=== PATIENT | male | born 1965 | race Caucasian/White ===

== ENCOUNTER 2019-07-22 08:35 | Outpatient (CLI) | payer OTHER | END 2019-07-22 08:36 | disposition critical access hospital (66) | LOC: EMS 08:35 | PROVIDERS: ATTEND Surgery | DX: R10.30 Lower abdominal pain, unspecified (principal) | CPT/HCPCS: A0425; A0429 ==

== ENCOUNTER 2019-07-22 08:59 | Emergency (ER) | payer OTHER ==
--- NOTE | 2019-07-22 09:12 | ED Physician Documentation ---
PD HPI ABD PAIN - Stated complaint Stated Complaint: ABD PX - Chief complaint Chief Complaint: Abd Pain - History obtained from History obtained from: Patient - History of Present Illness Timing - onset: Today (about 5 am, abrupt onset of left lower abd pain.) Timing - duration: Hours Timing - details: Abrupt onset, Still present Quality: Cramping, Sharp, Pain Location: LLQ Radiation: No: Left flank, Right flank Improved by: No: Laying still, BM (had small BM after onset of pain.) Worsened by: No: Moving, Breathing Associated symptoms: Nausea, Constipation (minimal BM the past 3 days.). No: Fever, Vomiting, Diarrhea Similar symptoms before: Diagnosis (had had similar pain in past due to diverticulitis.) Review of Systems Constitutional: denies: Fever, Chills Nose: denies: Rhinorrhea / runny nose, Congestion Throat: denies: Sore throat Respiratory: denies: Cough GI: reports: Nausea, Constipation. denies: Abdominal Swelling, Vomiting, Diarrhea : denies: Dysuria, Frequency Skin: denies: Rash PD PAST MEDICAL HISTORY - Past Medical History Cardiovascular: None Respiratory: Sleep apnea, CPAP use Endocrine/Autoimmune: None GI: None : None HEENT: None Psych: Depression, Anxiety Musculoskeletal: None Derm: None - Past Surgical History Past Surgical History: Yes General: Colonoscopy Ortho: Hip replacement - Present Medications Home Medications: Ambulatory Orders Medication Instructions Recorded Confirmed Tamsulosin [Flomax] 0.4 mg PO DAILY 03/17/14 10/13/15 Citalopram [CeleXA] 20 mg PO DAILY 07/26/14 10/13/15 traZODone [Desyrel] 100 mg PO HS 11/03/14 10/13/15 Naproxen 500 mg PO BID #20 tablet 07/22/19 Ondansetron Odt [Zofran] 4 mg TL Q6H PRN #15 tablet 07/22/19 Oxycodone HCl/Acetaminophen 1 each PO Q4H PRN #15 tablet 07/22/19 [Percocet 7.5-325 mg Tablet] - Allergies Allergies/Adverse Reactions: Allergies Allergy/AdvReac Type Severity Reaction Status Date / Time No Known Drug Allergies Allergy Verified 07/22/19 09:09 - Social History Does the pt smoke?: Yes Smoking Status: Current every day smoker Does the pt drink ETOH?: Yes Does the pt have substance abuse?: No - Immunizations Immunizations are current?: No - POLST Patient has POLST: No PD ED PE NORMAL - Vitals Vital signs reviewed: Yes - General General: Alert and oriented X 3, Well developed/nourished, Other (appears in considerable pain) - HEENT HEENT: Pharynx benign - Neck Neck: Supple, no meningeal sign, No adenopathy - Cardiac Cardiac: RRR, No murmur - Respiratory Respiratory: Clear bilaterally - Abdomen Abdomen: Normal bowel sounds, Soft, Non distended, No organomegaly, Other (tender LLQ without percussion nor rebound tenderness. ) - Back Back: No CVA TTP - Derm Derm: Normal color, Warm and dry - Extremities Extremities: No edema, No calf tenderness / cord Results - Vitals Vitals: Vital Signs - 24 hr 07/22/19 07/22/19 07/22/19 08:59 09:09 10:44 Temperature 36.8 C 36.8 C Heart Rate 88 85 70 Respiratory 20 16 16 Rate Blood Pressure 180/69 H 175/65 H 157/70 H O2 Saturation 98 98 96 07/22/19 07/22/19 12:00 13:25 Temperature 36.9 C Heart Rate 66 89 Respiratory 18 18 Rate Blood Pressure 186/62 H 111/55 L O2 Saturation 98 99 Oxygen O2 Source Room air - Labs Labs: Laboratory Tests 07/22/19 07/22/19 07/22/19 09:06 09:06 09:15 WBC 17.7 H RBC 4.38 L Hgb 13.2 L Hct 38.7 L MCV 88.4 MCH 30.1 MCHC 34.1 RDW 13.2 Plt Count 253 MPV 10.3 Neut # (Auto) 15.0 H Lymph # (Auto) 1.6 [place] # (Auto) 0.9 Eos # (Auto) 0.1 Baso # (Auto) 0.1 Absolute Nucleated RBC 0.00 Nucleated RBC % 0.0 Sodium 136 Potassium 4.2 Chloride 99 L Carbon Dioxide 25 Anion Gap 12.0 BUN 24 H Creatinine 1.2 Estimated GFR (MDRD) 63 L Glucose 155 H Calcium 10.0 Total Bilirubin 0.9 AST 37 ALT 44 Alkaline Phosphatase 93 Total Protein 8.8 H Albumin 4.8 Globulin 4.0 Albumin/Globulin Ratio 1.2 Lipase 67 H Urine Color YELLOW Urine Clarity CLEAR Urine pH 7.5 Ur Specific [place] 1.025 Urine Protein 30 H Urine Glucose (UA) NEGATIVE Urine Ketones 15 H Urine Occult Blood TRACE-INTA Urine Nitrite NEGATIVE Urine Bilirubin NEGATIVE Urine Urobilinogen 0.2 (NORMAL) Ur Leukocyte Esterase NEGATIVE Urine RBC 0-5 Urine WBC 0-3 Ur Squamous Epith Cells NONE SEEN Amorphous Sediment Few Urine Bacteria Few Ur Microscopic Review INDICATED Urine Culture Comments NOT INDICATED - Rads (name of study) abd CT Radiology: Prelim report reviewed (distal left ureteral stone with mild hydro, 3 mm. Diverticula without diverticulitis. ), See rad report PD MEDICAL DECISION MAKING - ED course Complexity details: re-evaluated patient (substantially improved after IV meds. ), considered differential, d/w patient Departure - Departure Disposition: 01 Home, Self Care Clinical Impression: Left sided abdominal pain, Ureterolithiasis Condition: Stable Record reviewed to determine appropriate education?: Yes Instructions: ED Stone Renal W Colic Follow-Up: JULIO ROACH DO [Primary Care Provider] - Prescriptions: Naproxen 500 mg PO BID #20 tablet Ondansetron Odt [Zofran] 4 mg TL Q6H PRN #15 tablet PRN Reason: Nausea / Vomiting Oxycodone HCl/Acetaminophen [Percocet 7.5-325 mg Tablet] 1 each PO Q4H PRN #15 tablet PRN Reason: Pain Comments: You have a small kidney stone 2 to 3 mm on the left side almost to the bladder. It is in the distal ureter in [place] is small enough that it should pass in the next few days at most. Recheck if not improved and resolved over the next few days. Meanwhile stay well-hydrated and continue usual medicines. Add naproxen anti- inflammatory twice daily for the next several days to a week. Add ondansetron if needed for nausea. To that add Tylenol 4 times a day or Percocet if needed for worse pain. Recheck if not improved over the next few days. Discharge Date/Time: 07/22/19 13:26
[2019-07-22 09:15] LABS: BASOPHILS # (AUTO) 0.1 10^3/uL (0.0-0.1); BASOPHILS % (AUTO) 0.5 %; EOSINOPHILS # (AUTO) 0.1 10^3/uL (0.0-0.7); EOSINOPHILS % (AUTO) 0.6 %; HGB - HEMOGLOBIN 13.2 g/dL (14.0-18.0); LYMPHOCYTES # (AUTO) 1.6 10^3/uL (1.5-3.5); LYMPHOCYTES % (AUTO) 8.9 %; MEAN CORPUSCULAR HEMOGLOBIN 30.1 pg (27.0-31.0); MEAN CORPUSCULAR HGB CONC 34.1 g/dL (32.0-36.0); MEAN CORPUSCULAR VOLUME 88.4 fL (80.0-94.0); MEAN PLATELET VOLUME 10.3 fL (7.4-11.4); MONOCYTES # (AUTO) 0.9 10^3/uL (0.0-1.0); MONOCYTES % (AUTO) 4.8 %; NEUTROPHILS % (AUTO) 84.4 %; PLT - PLATELET COUNT 253 10^3/uL (130-450); RED BLOOD COUNT 4.38 10^6/uL (4.70-6.10); RED CELL DISTRIBUTION WIDTH 13.2 % (12.0-15.0); WHITE BLOOD COUNT 17.7 x10^3/uL (4.8-10.8)
[2019-07-22 09:22] LABS: BILIRUBIN,URINE NEGATIVE (NEGATIVE); GLUCOSE, URINE (UA) NEGATIVE (NEGATIVE); KETONES,URINE (UA) 15 mg/dL (NEGATIVE); LEUKOCYTE ESTERASE, URINE NEGATIVE (NEGATIVE); NITRITE,URINE NEGATIVE (NEGATIVE); OCCULT BLOOD,URINE TRACE-INTA (NEGATIVE); PH,URINE 7.5 PH (5.0-7.5); PROTEIN,URINE 30 mg/dL (NEGATIVE); UROBILINOGEN,URINE 0.2 (NORMAL) E.U./dL (NORMAL)
[2019-07-22 09:23] LABS: CLARITY,URINE CLEAR (CLEAR)
[2019-07-22 09:26] LABS: ALBUMIN 4.8 g/dL (3.2-5.5); ALBUMIN/GLOBULIN RATIO 1.2 (1.0-2.2); BILIRUBIN,TOTAL 0.9 mg/dL (0.2-1.0); CREATININE 1.2 mg/dL (0.6-1.2); TOTAL PROTEIN 8.8 g/dL (6.7-8.2)
[2019-07-22 09:35] LABS: BACTERIA,URINE Few /HPF (None Seen); RBC,URINE 0-5 /HPF (0-5); SQUAMOUS EPITHELIAL CELL,UR NONE SEEN (<= Few)
[2019-07-22 09:36] LABS: AMORPHOUS SEDIMENT,UR Few /LPF
[2019-07-22] MEDS ORDERED: KETOROLAC 15 MG/ML VIAL IVP STA (09:46)
[2019-07-22] MEDS ORDERED: SODIUM CHLORIDE 0.9% 1,000 ML IV ONE (09:46)
[2019-07-22] MEDS ORDERED: ONDANSETRON 4 MG/2 ML VIAL IVP STA (09:46)
[2019-07-22] MEDS ORDERED: HYDROmorphone 1 MG/ML CARPUJECT IVP STA ×2 (09:46→12:26)
[2019-07-22] MEDS ORDERED: GLYCERIN ADULT SUPP PR STA (09:47)
[2019-07-22] MEDS ORDERED: DOCUSATE SODIUM 100 MG CAPSULE PO STA (09:47)
[2019-07-22] MEDS ORDERED: IOVERSOL 320 100 ML VIAL IVP ONE ×2 (09:52→12:29)
--- NOTE | 2019-07-22 12:18 | CT Report ---
Reason: left lower abd pain and elevated WBC Procedure Date: 07/22/2019 Accession Number: [id number] / [id number] Procedure: CT - Abdomen/Pelvis W CPT Code: Final Report FULL RESULT: EXAM: CT ABDOMEN AND PELVIS EXAM DATE: 07/22/2019 10:23 AM. CLINICAL HISTORY: Left lower abd pain and elevated WBC. COMPARISONS: ABDOMEN/PELVIS W/O 10/02/2013 1:06 PM. TECHNIQUE: Routine helical CT imaging was performed through the abdomen and pelvis. IV contrast: 100 mL OPTIRAY 320. Enteric contrast: No. Reconstructions: Coronal and sagittal. In accordance with CT protocol optimization, one or more of the following dose reduction techniques were utilized for this exam: automated exposure control, adjustment of mA and/or KV based on patient size, or use of iterative reconstructive technique. FINDINGS: Lung Bases: Unremarkable. Liver: Normal. No masses. Gallbladder/Bile Ducts: Unremarkable. Spleen: Normal. Pancreas: Normal. Adrenal Glands: Normal. Kidneys: 9 mm lower pole left renal calculus. Slightly delayed left nephrogram enhancement. Asymmetric moderate left perinephric fat stranding. Mild left hydronephrosis and hydroureter. 3 small distal left ureteral calculi which are difficult to visualize because of beam hardening artifact but measuring up to about 2 mm each. Right kidney unremarkable. Peritoneal Cavity/Bowel: Stomach mildly distended with fluid. Unopacified small bowel loops nondilated. Normal appendix. Moderate descending and proximal sigmoid colon diverticulosis. No focal pericolonic fat stranding. No lymphadenopathy, ascites, or pneumoperitoneum. Pelvic Organs: Small volume bladder. No bladder calculus is identified. Prostate gland and seminal vesicles are normal in size. Vasculature: Moderate aortoiliac atherosclerotic calcification. Bones: Left total hip arthroplasty causing beam hardening artifact. Avascular necrosis of the superior aspect of the right femoral head with mild articular surface collapse and moderate secondary osteoarthritis. Mild diffuse idiopathic skeletal hyperostosis in the lower thoracic greater than lumbar spine. 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 Other: Body wall is unremarkable. IMPRESSION: 1. Moderately obstructing distal left ureteral calculi, likely 3, measuring up to about 2 mm each, suboptimally visualized because of metal artifact from the left hip. 2. 10 mm lower pole left renal calculus. 3. Left total hip arthroplasty. 4. 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 5. 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 6. Moderate descending and proximal sigmoid colon diverticulosis without evidence of acute diverticulitis. RADIA
[2019-07-22] MEDS ORDERED: LIDOCAINE-MPF 2% 8 ML in SODIUM CHLORIDE 0.9% 50 ML IV STA (12:26)
[2019-07-22 13:26] VITALS: BP 111/55
== END 2019-07-22 13:26 | disposition home or self-care (01) ==
LOC: EDUNIT# → ED 08:59
DX: N20.1 Calculus of ureter (principal); F17.200 Nicotine dependence, unspecified, uncomplicated
CPT/HCPCS: 36415; 74177; 80053; 81001; 83690; 85025; 96361; 96374; 96375; 96376; 99284; A9270; J1170; J7040; Q9967; 81003; 87086

== ENCOUNTER 2020-11-29 20:06 | Emergency (ER) | payer OTHER ==
[2020-11-29] MEDS ORDERED: diphenhydrAMINE INJ 50 MG/ML VIAL IVP STA (20:27)
[2020-11-29] MEDS ORDERED: DROPERIDOL 5 MG/2 ML VIAL IVP STA (20:27)
[2020-11-29 20:35] LABS: BASOPHILS # (AUTO) 0.1 10^3/uL (0.0-0.1); BASOPHILS % (AUTO) 0.4 %; EOSINOPHILS # (AUTO) 0.1 10^3/uL (0.0-0.7); EOSINOPHILS % (AUTO) 0.9 %; HCT - HEMATOCRIT 35.8 % (42.0-52.0); LYMPHOCYTES # (AUTO) 1.9 10^3/uL (1.5-3.5); LYMPHOCYTES % (AUTO) 13.6 %; MEAN CORPUSCULAR HEMOGLOBIN 30.7 pg (27.0-31.0); MEAN CORPUSCULAR HGB CONC 33.5 g/dL (32.0-36.0); MEAN CORPUSCULAR VOLUME 91.6 fL (80.0-94.0); MEAN PLATELET VOLUME 9.4 fL (7.4-11.4); MONOCYTES # (AUTO) 0.8 10^3/uL (0.0-1.0); MONOCYTES % (AUTO) 5.6 %; NEUTROPHILS # (AUTO) 11.1 10^3/uL (1.5-6.6); PLT - PLATELET COUNT 250 10^3/uL (130-450); RED BLOOD COUNT 3.91 10^6/uL (4.70-6.10); RED CELL DISTRIBUTION WIDTH 12.8 % (12.0-15.0)
[2020-11-29 20:45] LABS: BILIRUBIN,URINE NEGATIVE (NEGATIVE); GLUCOSE, URINE (UA) NEGATIVE (NEGATIVE); KETONES,URINE (UA) NEGATIVE (NEGATIVE); LEUKOCYTE ESTERASE, URINE TRACE (NEGATIVE); NITRITE,URINE NEGATIVE (NEGATIVE); OCCULT BLOOD,URINE LARGE (NEGATIVE); PH,URINE 5.5 PH (5.0-7.5); PROTEIN,URINE 100 mg/dL (NEGATIVE); UROBILINOGEN,URINE 0.2 (NORMAL) E.U./dL (NORMAL)
[2020-11-29 20:47] LABS: CLARITY,URINE HAZY (CLEAR)
--- NOTE | 2020-11-29 20:47 | ED Physician Documentation ---
PD HPI ABD PAIN - Stated complaint Stated Complaint: STOMACH PX N/V - Chief complaint Chief Complaint: Abd Pain - History obtained from History obtained from: Patient - History of Present Illness Timing - onset: How many hours ago (1) Timing - duration: Hours (1) Timing - details: Abrupt onset Pain level max: 8 Pain level now: 1 Quality: Cramping, Aching, Pain Location: All over / everywhere Associated symptoms: Nausea, Vomiting. No: Fever, Hematemesis, Diarrhea, Constipation Recently seen: Not recently seen - Additional information Additional information: Patient is a 55-year-old male who complains of generalized abdominal pain. Started about an hour ago, comes and goes. Nothing makes it better or worse. Has had nausea and vomiting associated with this. Does have a history of ureteral stones, but states that this feels different. He last ate about 7 hours prior to symptom onset. He does use marijuana daily and gross is on marijuana. No fevers. No chills. No urinary symptoms. No abdominal surgeries in the past Review of Systems Constitutional: denies: Fever, Chills GI: reports: Nausea, Vomiting. denies: Diarrhea, Hematemesis, Bloody / black stool : denies: Dysuria, Frequency, Hesitancy Skin: denies: Rash Musculoskeletal: denies: Neck pain, Back pain Neurologic: denies: Headache PD PAST MEDICAL HISTORY - Past Medical History Past Medical History: Yes Cardiovascular: None Respiratory: Sleep apnea, CPAP use Endocrine/Autoimmune: None GI: GERD, Diverticulitis : None HEENT: None Psych: Depression, Anxiety Musculoskeletal: None Derm: None - Past Surgical History Past Surgical History: Yes General: Colonoscopy Ortho: Hip replacement - Present Medications Home Medications: Ambulatory Orders Medication Instructions Recorded Confirmed Tamsulosin [Flomax] 0.4 mg PO DAILY 03/17/14 10/13/15 Citalopram [CeleXA] 20 mg PO DAILY 07/26/14 10/13/15 traZODone [Desyrel] 100 mg PO HS 11/03/14 10/13/15 Naproxen 500 mg PO BID #20 tablet 07/22/19 Ondansetron Odt [Zofran] 4 mg TL Q6H PRN #15 tablet 07/22/19 Oxycodone HCl/Acetaminophen 1 each PO Q4H PRN #15 tablet 07/22/19 [Percocet 7.5-325 mg Tablet] Ondansetron Odt [Zofran] 4 mg TL Q6H PRN #10 tablet 11/29/20 - Allergies Allergies/Adverse Reactions: Allergies Allergy/AdvReac Type Severity Reaction Status Date / Time No Known Drug Allergies Allergy Verified 07/22/19 09:09 - Social History Does the pt smoke?: Yes Smoking Status: Current every day smoker Does the pt drink ETOH?: Yes Does the pt have substance abuse?: No - Immunizations Immunizations are current?: No - POLST Patient has POLST: No PD ED PE NORMAL - Vitals Vital signs reviewed: Yes - General General: Alert and oriented X 3, No acute distress, Well developed/nourished - HEENT HEENT: PERRL, Moist mucous membranes - Neck Neck: Supple, no meningeal sign - Cardiac Cardiac: RRR, Strong equal pulses - Respiratory Respiratory: No respiratory distress, Clear bilaterally - Abdomen Abdomen: Soft, Non tender, Non distended - Back Back: No CVA TTP, No spinal TTP - Derm Derm: Warm and dry - Extremities Extremities: No edema - Neuro Neuro: Alert and oriented X 3 - Psych Psych: Normal mood, Normal affect Results - Vitals Vitals: Vital Signs - 24 hr 11/29/20 11/29/20 20:09 20:12 Temperature 36.5 C 36.5 C Heart Rate 76 76 Respiratory 16 16 Rate Blood Pressure 159/71 H 159/71 H O2 Saturation 98 98 Oxygen O2 Source Room air - Labs Labs: Laboratory Tests 11/29/20 11/29/20 11/29/20 20:31 20:31 20:40 WBC 14.0 H RBC 3.91 L Hgb 12.0 L Hct 35.8 L MCV 91.6 MCH 30.7 MCHC 33.5 RDW 12.8 Plt Count 250 MPV 9.4 Neut # (Auto) 11.1 H Lymph # (Auto) 1.9 [place] # (Auto) 0.8 Eos # (Auto) 0.1 Baso # (Auto) 0.1 Absolute Nucleated RBC 0.00 Nucleated RBC % 0.0 Sodium 137 Potassium 4.5 Chloride 100 L Carbon Dioxide 26 Anion Gap 11.0 BUN 19 Creatinine 0.9 Estimated GFR (MDRD) 87 L Glucose 116 H Calcium 9.8 Total Bilirubin 0.7 AST 20 ALT 24 Alkaline Phosphatase 91 Total Protein 8.3 H Albumin 4.8 Globulin 3.5 Albumin/Globulin Ratio 1.4 Lipase 32 Urine Color DARK YELLOW Urine Clarity HAZY Urine pH 5.5 Ur Specific [place] 1.025 Urine Protein 100 H Urine Glucose (UA) NEGATIVE Urine Ketones NEGATIVE Urine Occult Blood LARGE H Urine Nitrite NEGATIVE Urine Bilirubin NEGATIVE Urine Urobilinogen 0.2 (NORMAL) Ur Leukocyte Esterase TRACE H Urine RBC TNTC H Urine WBC 4-5 Ur Squamous Epith Cells RARE Squamous Amorphous Sediment Rare Urine Bacteria Rare Ur Microscopic Review INDICATED Urine Culture Comments INDICATED - Rads (name of study) CT abdomen and pelvis Radiology: Final report received, EMP read contemporaneously, See rad report PD MEDICAL DECISION MAKING - ED course Complexity details: reviewed results, re-evaluated patient, considered differential, d/w patient ED course: Patient given droperidol and Benadryl. Symptoms resolved. No further abdominal pain, nausea or vomiting. Does have a nonobstructing left renal pelvic calculus, 18 mm. No other acute process. Minimally elevated white blood cell count, likely from the vomiting and pain. Possible cannabinoid induced hyperemesis? We will have him follow-up with his doctor for further care. Abdomen remains soft, nontender nondistended on serial exam. Possible viral infection versus food poisoning as well. Patient counseled regarding signs and symptoms for which I believe and urgent re-evaluation would be necessary. Patient with good understanding of and agreement to plan and is comfortable going home at this time This document was made in part using voice recognition software. While efforts are made to proofread this document, sound alike and grammatical errors may occur. IMPRESSION: 1. Nonobstructing left renal pelvic calculus. 2. Normal appendix. 3. No acute process. Departure - Departure Disposition: 01 Home, Self Care Clinical Impression: Renal stone Vomiting Qualifiers: Vomiting type: unspecified Vomiting Intractability: non-intractable Nausea presence: with nausea Qualified Code(s): R11.2 - Nausea with vomiting, unspecified Abdominal pain Qualifiers: Abdominal location: generalized Qualified Code(s): R10.84 - Generalized abdominal pain Condition: Good Instructions: ED Nausea Vomiting, ED Abdominal Pain Unkn Cause Follow-Up: JULIO ROACH DO [Primary Care Provider] - Floyd Phillips MD [Physician No Access] - Within 1 week Prescriptions: Ondansetron Odt [Zofran] 4 mg TL Q6H PRN #10 tablet PRN Reason: Nausea / Vomiting Comments: It is important that you follow-up with urology, [facility] are the closest urologist to you. You do have a large 18 mm stone in the left renal pelvis, this will likely need to be removed. A prescription was sent to [facility] for nausea medication. Please return if you worsen.
[2020-11-29 20:49] LABS: ALBUMIN 4.8 g/dL (3.2-5.5); ALBUMIN/GLOBULIN RATIO 1.4 (1.0-2.2); BILIRUBIN,TOTAL 0.7 mg/dL (0.2-1.0); CALCIUM 9.8 mg/dL (8.5-10.3); CREATININE 0.9 mg/dL (0.6-1.2); POTASSIUM 4.5 mmol/L (3.5-5.0); TOTAL PROTEIN 8.3 g/dL (6.7-8.2)
[2020-11-29 20:54] LABS: AMORPHOUS SEDIMENT,UR Rare /LPF; BACTERIA,URINE Rare /HPF (None Seen); RBC,URINE TNTC /HPF (0-5); SQUAMOUS EPITHELIAL CELL,UR RARE Squamous (<= Few)
[2020-11-29] MEDS ORDERED: IOPAMIDOL-300 100 ML VIAL IVP ONE (21:21)
--- NOTE | 2020-11-29 21:34 | CT Report ---
PROCEDURE: Abdomen/Pelvis W INDICATIONS: Abdominal pain, acute, nonlocalized CONTRAST: IV CONTRAST: Isovue 300 ml: 100 PO CONTRAST: *NO PO CONTRAST TECHNIQUE: After the administration of IV contrast, 5 mm thick sections acquired from the diaphragms to the symp hysis. 5 mm thick coronal and sagittal reformats were acquired. For radiation dose reduction, the f ollowing was used: automated exposure control, adjustment of mA and/or kV according to patient size. COMPARISON: CT dated 07/22/2019 FINDINGS: Image quality: Excellent. ABDOMEN: Lung bases: Lung bases are clear. Heart size is normal. Solid organs: Liver and spleen are normal in size and enhancement. Gallbladder is within normal villa its Biliary system is non dilated. Pancreas enhances normally. No adrenal nodules. Kidneys demons trate normal size and enhancement, without hydronephrosis. Nonobstructing left renal calculus within the pelvis measuring 18 mm, increased in size. Peritoneum and bowel: Bowel loops demonstrate normal wall thickness and caliber. No free fluid or a ir. Normal appendix. Nodes and vessels: No retroperitoneal or mesenteric adenopathy by size criteria. Aorta and inferior vena cava are normal in size. Miscellaneous: No ventral hernias. PELVIS: Genitourinary: Bladder wall thickness is normal. Miscellaneous: No inguinal hernias or adenopathy. Bones: No suspicious bony lesions. No vertebral body compression fractures. IMPRESSION: 1. Nonobstructing left renal pelvic calculus. 2. Normal appendix. 3. No acute process. Reviewed by: Ana Alejandro MD on 11/29/2020 9:33 PM PDT Approved by: Ana Alejandro MD on 11/29/2020 9:33 PM PDT Station ID: [id number]
[2020-11-29 22:07] VITALS: BP 130/70
== END 2020-11-29 22:06 | disposition home or self-care (01) ==
LOC: ED 20:06
DX: N20.0 Calculus of kidney (principal); R11.2 Nausea with vomiting, unspecified; R10.84 Generalized abdominal pain; Z87.442 Personal history of urinary calculi; F17.200 Nicotine dependence, unspecified, uncomplicated
CPT/HCPCS: 36415; 74177; 80053; 81001; 83690; 85025; 87086; 96374; 96375; 99284; J1200; Q9967; 81003

== ENCOUNTER 2021-04-17 10:45 | Emergency (ER) | payer OTHER ==
[2021-04-17 11:15] LABS: BASOPHILS % (AUTO) 0.4 %; EOSINOPHILS # (AUTO) 0.2 10^3/uL (0.0-0.7); EOSINOPHILS % (AUTO) 2.2 %; HGB - HEMOGLOBIN 12.6 g/dL (14.0-18.0); LYMPHOCYTES # (AUTO) 2.8 10^3/uL (1.5-3.5); LYMPHOCYTES % (AUTO) 27.5 %; MEAN CORPUSCULAR HEMOGLOBIN 29.5 pg (27.0-31.0); MEAN CORPUSCULAR HGB CONC 33.2 g/dL (32.0-36.0); MEAN PLATELET VOLUME 10.1 fL (7.4-11.4); MONOCYTES # (AUTO) 0.6 10^3/uL (0.0-1.0); MONOCYTES % (AUTO) 6.1 %; NEUTROPHILS # (AUTO) 6.4 10^3/uL (1.5-6.6); NEUTROPHILS % (AUTO) 63.2 %; PLT - PLATELET COUNT 276 10^3/uL (130-450); RED BLOOD COUNT 4.27 10^6/uL (4.70-6.10); RED CELL DISTRIBUTION WIDTH 14.2 % (12.0-15.0); WHITE BLOOD COUNT 10.2 x10^3/uL (4.8-10.8)
[2021-04-17 11:30] LABS: ALBUMIN 4.5 g/dL (3.2-5.5); ALBUMIN/GLOBULIN RATIO 1.2 (1.0-2.2); BILIRUBIN,TOTAL 0.2 mg/dL (0.2-1.0); CALCIUM 9.8 mg/dL (8.5-10.3); CREATININE 1.1 mg/dL (0.6-1.2); TOTAL PROTEIN 8.4 g/dL (6.7-8.2)
--- NOTE | 2021-04-17 11:49 | XRAY Report ---
PROCEDURE: Chest 1 View X-Ray INDICATIONS: Chest pain TECHNIQUE: One view of the chest was acquired. COMPARISON: None FINDINGS: Surgical changes and devices: None. Lungs and pleura: No pleural effusions or pneumothorax. Lungs are clear. Mediastinum: Mediastinal contours appear normal. Heart size is enlarged. Moderate vascular congesti on noted.. Bones and chest wall: No suspicious bony lesions. Overlying soft tissues appear unremarkable. IMPRESSION: Cardiomegaly and moderate vascular congestion Reviewed by: Daniel Archuleta MD on 04/17/2021 10:48 AM [facility] Approved by: Daniel Archuleta MD on 04/17/2021 10:48 AM [facility] Station ID: [id number]
[2021-04-17] MEDS ORDERED: ASPIRIN CHEW 81 MG TABLET PO STA (11:55)
--- NOTE | 2021-04-17 12:32 | ED Physician Documentation ---
PD HPI CHEST PAIN - Stated complaint Stated Complaint: CHEST PX - Chief complaint Chief Complaint: Cardiac - History obtained from History obtained from: Patient - Additional information Additional information: Patient is a 55-year-old male presenting to the emergency department with chest pain. Past medical significant for diabetes, dyslipidemia. Reports intermittent episodes of chest pain radiating up into his neck and head times several months. Reports has had intermittent episodes of chest pain becoming more frequent and more severe since November. Denies any known history of cardiac disease. Does have known history of peripheral vascular disease, underwent endarterectomy of his left carotid, in 2017 at [facility]. Does report had stress testing performed at that time as well and was told that "everything looked all right". Generally is asymptomatic. Denies any associated fever, chills, weight loss, shortness of breath, heart palpitations, abdominal pain, nausea, vomiting, diaphoresis, diarrhea, constipation. Review of Systems Constitutional: denies: Fever Eyes: denies: Loss of vision Ears: denies: Loss of hearing Nose: denies: Rhinorrhea / runny nose Throat: denies: Dental pain / toothache Cardiac: reports: Chest pain / pressure Respiratory: denies: Dyspnea GI: denies: Abdominal Pain : denies: Dysuria Skin: denies: Rash Neurologic: denies: Generalized weakness PD PAST MEDICAL HISTORY - Past Medical History Past Medical History: Yes Cardiovascular: High cholesterol, Peripheral Vascular Disease Respiratory: Sleep apnea, CPAP use Neuro: Headaches Endocrine/Autoimmune: Type 2 diabetes GI: GERD, Diverticulitis : Kidney stones HEENT: None Psych: Depression, Anxiety Musculoskeletal: None Derm: None - Past Surgical History Past Surgical History: Yes General: Colonoscopy Ortho: Hip replacement - Present Medications Home Medications: Ambulatory Orders Medication Instructions Recorded Confirmed Citalopram [CeleXA] 20 mg PO DAILY 07/26/14 04/17/21 traZODone [Desyrel] 100 mg PO HS 11/03/14 04/17/21 Aspirin EC [Ecotrin] 81 mg PO DAILY 04/17/21 04/17/21 Atorvastatin [Lipitor] 20 mg ORAL DAILY 04/17/21 04/17/21 Cholecalciferol (Vitamin D3) 50 mcg PO DAILY 04/17/21 04/17/21 [Vitamin D3] Cyclobenzaprine [Flexeril] 10 mg ORAL HS 04/17/21 04/17/21 Sildenafil Citrate 100 mg PO DAILY PRN 04/17/21 04/17/21 Zinc Gluconate [Zinc] 50 mg PO DAILY 04/17/21 04/17/21 metFORMIN [Glucophage] 500 mg PO BIDWM 04/17/21 04/17/21 - Allergies Allergies/Adverse Reactions: Allergies Allergy/AdvReac Type Severity Reaction Status Date / Time No Known Drug Allergies Allergy Verified 04/17/21 10:53 - Social History Does the pt smoke?: Yes Smoking Status: Former smoker Does the pt drink ETOH?: No Does the pt have substance abuse?: Yes Substance Use and Type: Marijuana - Immunizations Immunizations are current?: No Immunizations: Other immun current - POLST Patient has POLST: No PD ED PE NORMAL - General General: Alert and oriented X 3 - HEENT HEENT: Atraumatic - Neck Neck: Supple, no meningeal sign - Cardiac Cardiac: RRR, No gallop - Respiratory Respiratory: No respiratory distress - Abdomen Abdomen: Normal bowel sounds - Male Male : Deferred - Rectal Rectal: Deferred - Back Back: No CVA TTP - Derm Derm: Normal color - Extremities Extremities: No deformity - Neuro Neuro: Alert and oriented X 3, mapping editor 2-12 intact, No motor deficit Results - Vitals Vitals: Vital Signs - 24 hr 04/17/21 04/17/21 04/17/21 10:49 11:25 13:24 Temperature 35.4 C L Heart Rate 93 82 78 Respiratory 18 16 20 Rate Blood Pressure 143/66 H 131/64 H 125/64 O2 Saturation 97 99 97 04/17/21 15:17 Temperature 37 C Heart Rate 80 Respiratory 20 Rate Blood Pressure 138/67 H O2 Saturation 97 Oxygen O2 Source Room air - EKG (time done) 1051 Rate: Rate (enter#) (76) Rhythm: NSR [place]: Normal Intervals: Normal MT QRS: Normal Ischemia: Normal ST segments, T wave inversion Compare to prior EKG: Old EKG unavailable 1206 Rate: Rate (enter#) (76) Rhythm: NSR [place]: Normal Intervals: Normal MT QRS: Normal Ischemia: Normal ST segments, T wave inversion Compare to prior EKG: Unchanged from prior EKG - Labs Labs: Laboratory Tests 04/17/21 04/17/21 04/17/21 11:10 11:10 11:10 WBC 10.2 RBC 4.27 L Hgb 12.6 L Hct 38.0 L MCV 89.0 MCH 29.5 MCHC 33.2 RDW 14.2 Plt Count 276 MPV 10.1 Neut # (Auto) 6.4 Lymph # (Auto) 2.8 [place] # (Auto) 0.6 Eos # (Auto) 0.2 Baso # (Auto) 0.0 Absolute Nucleated RBC 0.00 Nucleated RBC % 0.0 Sodium 138 Potassium 4.0 Chloride 100 L Carbon Dioxide 25 Anion Gap 13.0 BUN 22 H Creatinine 1.1 Estimated GFR (MDRD) 69 L Glucose 116 H Calcium 9.8 Total Bilirubin 0.2 AST 23 ALT 26 Alkaline Phosphatase 117 Troponin I High Sens 144.5 H* Total Protein 8.4 H Albumin 4.5 Globulin 3.9 Albumin/Globulin Ratio 1.2 Lipase 90 H Nasal Adenovirus (PCR) Nasal B. parapertussis DNA (PCR) Nasal Coronavir 229E PCR Nasal Coronavir HKU1 PCR Nasal Coronavir NL63 PCR Nasal Coronavir OC43 PCR Nasal Enterovir/Rhinovir PCR Nasal Influenza B PCR Nasal Influenza A PCR Nasal Parainfluen 1 PCR Nasal Parainfluen 2 PCR Nasal Parainfluen 3 PCR Nasal Parainfluen 4 PCR Nasal RSV (PCR) Nasal B.pertussis DNA PCR Nasal C.pneumoniae (PCR) Paolo Human Metapneumo PCR Nasal M.pneumoniae (PCR) Nasal SARS-CoV-2 (PCR) 04/17/21 04/17/21 12:15 13:15 WBC RBC Hgb Hct MCV MCH MCHC RDW Plt Count MPV Neut # (Auto) Lymph # (Auto) [place] # (Auto) Eos # (Auto) Baso # (Auto) Absolute Nucleated RBC Nucleated RBC % Sodium Potassium Chloride Carbon Dioxide Anion Gap BUN Creatinine Estimated GFR (MDRD) Glucose Calcium Total Bilirubin AST ALT Alkaline Phosphatase Troponin I High Sens 139.4 H* Total Protein Albumin Globulin Albumin/Globulin Ratio Lipase Nasal Adenovirus (PCR) NOT DETECTED Nasal B. parapertussis DNA (PCR) NOT DETECTED Nasal Coronavir 229E PCR NOT DETECTED Nasal Coronavir HKU1 PCR NOT DETECTED Nasal Coronavir NL63 PCR NOT DETECTED Nasal Coronavir OC43 PCR NOT DETECTED Nasal Enterovir/Rhinovir PCR NOT DETECTED Nasal Influenza B PCR NOT DETECTED Nasal Influenza A PCR NOT DETECTED Nasal Parainfluen 1 PCR NOT DETECTED Nasal Parainfluen 2 PCR NOT DETECTED Nasal Parainfluen 3 PCR NOT DETECTED Nasal Parainfluen 4 PCR NOT DETECTED Nasal RSV (PCR) NOT DETECTED Nasal B.pertussis DNA PCR NOT DETECTED Nasal C.pneumoniae (PCR) NOT DETECTED Paolo Human Metapneumo PCR NOT DETECTED Nasal M.pneumoniae (PCR) NOT DETECTED Nasal SARS-CoV-2 (PCR) NOT DETECTED PD MEDICAL DECISION MAKING - ED course ED course: Patient is a 55-year-old male presenting to the emergency department with past medical significant for diabetes, dyslipidemia, peripheral vascular disease status post left-sided carotid endarterectomy performed in 2016 at [facility] with chief complaint of chest pain. Reports intermittent episodes of chest pain that been ongoing since November of last year. Reports that they are becoming increasing in frequency and severity. States has been seen by his primary care doctor and has follow-up with cardiology this coming May. Comes to the emergency department because of increasing pain and states "I need to know what is going on". Afebrile, hemodynamically stable on arrival to the emergency department. EKG as outlined above demonstrated T wave inversions, principally in V3 as well as some indications of early repole. No previous EKG available for comparison. Chest x-ray demonstrated cardiomegaly with some vascular congestion however patient did not have any symptomatic dyspnea and clinically does not fit the overall picture for exacerbation of CHF. His initial troponin however was elevated at 144. Given his risk factors and presentation he is highly concerning for NSTEMI/ACS. He was given aspirin in the emergency department. Serial EKGs were unchanged. His care was discussed both with cardiology at [facility] as well as with the hospitalist service and cardiology at [facility] in [facility]. At this time will be transferred from our facility to [facility] for further evaluation and treatment. Departure - Departure Disposition: 02 Transfer Acute Care Hosp Clinical Impression: NSTEMI (non-ST elevated myocardial infarction), Chest pain Discharge Date/Time: 04/17/21 15:29
[2021-04-17 13:39] LABS: B. PARAPERTUSSIS- RESP PCR PAN NOT DETECTED; B. PERTUSSIS- RESP PCR PANEL NOT DETECTED; C. PNEUMONIAE- RESP PCR PANEL NOT DETECTED; CORONAVIRUS 229E-RESP PCR NOT DETECTED; CORONAVIRUS HKU1-RESP PCR NOT DETECTED; CORONAVIRUS NL63-RESP PCR NOT DETECTED; CORONAVIRUS OC43-RESP PCR NOT DETECTED; HUMAN METAPNEUMOVIRUS NOT DETECTED; INFLUENZA A- RESP PCR PANEL NOT DETECTED; INFLUENZA B - RESP PCR PANEL NOT DETECTED; M. PNEUMONIAE- RESP PCR PANEL NOT DETECTED; PARAINFLUENZA VIRUS 1 NOT DETECTED; PARAINFLUENZA VIRUS 2 NOT DETECTED; PARAINFLUENZA VIRUS 3 NOT DETECTED; PARAINFLUENZA VIRUS 4 NOT DETECTED; RHINOVIRUS/ENTEROVIRUS NOT DETECTED; RSV- RESP PCR PANEL NOT DETECTED; SARS-CoV-2 -RESP PCR PANEL NOT DETECTED
[2021-04-17] MEDS ORDERED: HEPARIN 25000UNITS/500ML (D5W) 25,000 UNIT/500 ML BAG IV SCH (14:00)
[2021-04-17 15:18] VITALS: BP 138/67
== END 2021-04-17 15:29 | disposition short-term general hospital (02) ==
LOC: ED 10:45
DX: I21.4 Non-ST elevation (NSTEMI) myocardial infarction (principal); E78.5 Hyperlipidemia, unspecified; Z87.891 Personal history of nicotine dependence; E11.51 Type 2 diabetes mellitus with diabetic peripheral angiopathy without gangrene; Z79.84 Long term (current) use of oral hypoglycemic drugs; Z79.82 Long term (current) use of aspirin; Z20.822 Contact with and (suspected) exposure to COVID-19
CPT/HCPCS: 0202U; 36415; 71045; 80053; 83690; 84484; 85025; 93005; 96374; 99284; 99285; A9270

== ENCOUNTER 2021-04-17 15:27 | Outpatient (CLI) | payer OTHER | END 2021-04-17 15:28 | disposition short-term general hospital (02) | LOC: EMS 15:27 | PROVIDERS: ATTEND Student in an Organized Health Care Education/Training Program | DX: I21.4 Non-ST elevation (NSTEMI) myocardial infarction (principal) | CPT/HCPCS: A0425; A0428 ==

== ENCOUNTER 2023-06-22 15:03 | Outpatient (CLI) | payer OTHER ==
--- NOTE | 2023-06-22 15:33 | Sleep Patient Instructions ---
Sleep Center Visit Summary - Patient Visit Information Reason for Visit: First compliance follow-up - Patient Instructions Additional Instructions: You were here for follow up of CPAP therapy. You will be continued on CPAP therapy with pressure at 17-20 cmH2O. You should follow up with sleep care in 12 months. You may contact us sooner for any questions or concerns. - Clinic Information Contact: [facility] [address] [place] [address] [email or web address] T: [phone]
--- NOTE | 2023-06-22 15:37 | SLEEP CARE CONSULTATION ---
Information from patient questionnaire entered by Rolando Thakkar. I have reviewed and concur with the information entered by Rolando Thakkar. This document represents the service I personally performed and the decisions made by me, Marilee Leyva ARNP. History of Present Illness Service Date and Time: 06/22/2023 1503 Previous diagnosis: Extremely Severe, Obstructive Sleep Apnea-Hypopnea Syndrome AHI: 151.8 (01/05/2016) Reason for follow up: first compliance after device update Equipment type: CPAP (RESMED Airsense 11, S/U 05/04/23) Equipment obtained from: [employer] (getting supplies) Mask style: Full face Mask brand: Resmed (Mirage Active LT) Backup mask available: Yes Last cushion change: 1 month Prior sleep studies: Yes Year and Where: 01/05/2016 at [facility] HPI additional information: ANI CARRERA was diagnosed to have extremely severe, AHI 151.8, obstructive sleep apnea-hypopnea syndrome and returned today for CPAP therapy first compliance after updating device follow-up. Sleep Study - Results Prior sleep studies: Yes CPAP Compliance Data - Data Reviewed with Patient Average duration of nightly device use: 11 HRS 14 MINS Compliance rate %: 83 (05/04/23-06/02/23; 25/30 days used; 100% in last 30 days) Current pressure setting (cmH2O): 17-20 Average residual AHI: 0.6 Central apnea: 0.2 Obstructive apnea: 0.2 Hypopnea: 0.2 Average large leak: 0 L/min Subjective Patient concerns: reports: dry mouth, nose, throat (dry mouth, has chronic dry mouth). denies: aerophagia, mask discomfort, air blowing in eyes, mask leak noise, condensation in mask/hose, nasal congestion, epistaxis Observed to snore while using device: No Current pressure setting perceived as: comfortable On therapy, patient: reports: sleeping better, awakening more refreshed, being more awake and alert during the day, more rested overall. denies: drowsiness while driving Initial Wheatley Sleepiness Scale score: 0 (03/15/23) Current [place] Sleepiness Scale score: 3 (06/22/23) Allergies and Home Medications Known drug allergies: No Drug allergies reviewed: Yes Home medication list reviewed: Yes (no changes) Allergy and home medication list: Allergies No Known Drug Allergies Allergy (Verified 06/20/23 10:14) Review of Systems Review of systems same as previous: Yes (NO CHANGE) Physical Exam Vital signs obtained and entered by: ROLANDO Oneal MA Blood Pressure: 113/52 (LEFT ARM) Cuff size: regular Heart Rate: 70 O2 Saturation: 98 Height: 5 ft 4 in Weight: 261 lb Body Mass Index: 44.8 BMI Classification: Morbidly Obese Impression and Plan 1. Obstructive Sleep Apnea-Hypopnea Syndrome, extremely severe, with good treatment compliance and good apnea control. On CPAP therapy, the patient has better sleep quality and is more rested overall. Patient has significant improvement of their sleep apnea and is satisfied with current CPAP therapy. Patient states he does get dry mouth but has been having dry mouth issues since he has been put on a lot of medications for his heart. He says its dry all day long and not just from using his CPAP. Patient denies problems with nasal congestion, epistaxis, skin irritation or aerophagia. Patient's apnea severity and rationale for treatment to reduce apnea, improve sleep quality and reduce cardiovascular and cerebrovascular events was reviewed. I also reviewed the benefit of consistent device use of CPAP for hypertension, cardiac disease (CHD), diabetes, depression. 2. Obesity, unspecified. Currently patients BMI is 44.8. Obesity increases the risk of apnea, CPAP pressure requirements and overall health risks especially cardiovascular and diabetes. Thus patient is advised to lose weight. * Continue auto CPAP pressure at 17-20 cmH2O * Notify me if snoring with mask or feeling that the pressure is too much or too little * Attempt to lose weight * Call this office if any problems using CPAP * Return for follow up in 12 months, or sooner if concerns arise Counseling Topics: Spare mask, Weight loss health impact Follow up with Sleep Care in: 1 year Visit Type: In Office Time Spent with Patient (minutes): 15 Provider Statement: I spent 100% of the Face to Face Visit with the patient with greater than 50% spent counseling the patient and coordination of care.
[2023-06-22 15:43] VITALS: BP 113/52; O2SAT 98
== END 2023-06-22 15:04 | disposition home or self-care (01) ==
LOC: SC 15:03
PROVIDERS: ATTEND Nurse Practitioner Family
DX: G47.33 Obstructive sleep apnea (adult) (pediatric) (principal); E66.01 Morbid (severe) obesity due to excess calories; Z68.41 Body mass index [BMI] 40.0-44.9, adult
CPT/HCPCS: 99212